=== PATIENT | female | born 1945 | race Caucasian/White ===

== ENCOUNTER 2022-01-11 16:01 | Outpatient (CLI) | payer MEDICARE, OTHER | END 2022-01-11 16:02 | disposition home or self-care (01) | LOC: CSHRAD 16:01 | PROVIDERS: ATTEND Family Medicine Sports Medicine | DX: S92.902A Unspecified fracture of left foot, initial encounter for closed fracture (principal) ==

== ENCOUNTER 2022-07-09 10:01 | Outpatient (CLI) | payer MEDICARE | END 2022-07-09 10:02 | disposition home or self-care (01) | LOC: CSHMAMMO 10:01 | PROVIDERS: ATTEND Family Medicine Sports Medicine | DX: Z13.820 Encounter for screening for osteoporosis (principal); Z78.0 Asymptomatic menopausal state; M85.851 Other specified disorders of bone density and structure, right thigh; M85.852 Other specified disorders of bone density and structure, left thigh | CPT/HCPCS: 77080 ==